=== PATIENT | female | born 1960 | race Hispanic/Latino ===

== ENCOUNTER → 2019-12-17 | Outpatient (CLI) | payer MEDICAID ==
[~2019-12-17] MED LIST: AMLO5TAB4 PO; ASCO100T12 PO; ASPI-1026 PO; ATOR40TA71 PO; CLOP75TA32 PO; INSU200I SQ; INSU300I SQ; LISI40TA4 PO; METF-446 PO; METO25TA6 PO; MV-M1TAB20 PO; PREG75CA75 PO; SENN-107 PO
== END | disposition home or self-care (01) ==
LOC: EDUNIT# 11-14 14:50 → SHCH 08:43
PROVIDERS: ATTEND Internal Medicine Cardiovascular Disease
DX: I87.2 Venous insufficiency (chronic) (peripheral) (principal)
CPT/HCPCS: 93970

== ENCOUNTER → 2020-04-30 | Outpatient (CLI) | payer MEDICAID | END | disposition home or self-care (01) | LOC: SHCH 15:15 | PROVIDERS: ATTEND Internal Medicine Cardiovascular Disease | DX: I25.5 Ischemic cardiomyopathy (principal) | CPT/HCPCS: 93306; 93356 ==

== ENCOUNTER → 2020-05-01 | Outpatient (CLI) | payer MEDICAID ==
[~2020-05-01] MED LIST changes: -AMLO5TAB4 PO; -ASCO100T12 PO; -ASPI-1026 PO; -ATOR40TA71 PO; -CLOP75TA32 PO; -INSU200I SQ; -INSU300I SQ; -LISI40TA4 PO; -METF-446 PO; -METO25TA6 PO; -MV-M1TAB20 PO; -PREG75CA75 PO; +REGADENOSON 0.4 MG/5 ML PF SYG IVP SCH; -SENN-107 PO
== END | disposition home or self-care (01) ==
LOC: SHCH 07:55
PROVIDERS: ATTEND Internal Medicine Cardiovascular Disease
DX: I21.4 Non-ST elevation (NSTEMI) myocardial infarction (principal)
CPT/HCPCS: 78452; 93017; 96374; A9500 ×2; J2785

== ENCOUNTER 2020-06-04 10:20 | Day surgery (SDC) | payer MEDICAID ==
[2020-06-01 10:55] VITALS: BP 134/70
[2020-06-01 12:47] LABS: BASOPHILS % (AUTO) 0.6 % (0.0-5.0); EOSINOPHILS % (AUTO) 2.1 % (0.0-8.0); HEMATOCRIT 35.8 % (36-48); LYMPHOCYTES % (AUTO) 28.4 % (21.0-51.0); MEAN CORPUSCULAR HEMOGLOBIN 24.1 pg (27.0-33.0); MEAN CORPUSCULAR HGB CONC 30.7 g/dL (32.0-36.0); MEAN CORPUSCULAR VOLUME 78.5 fL (79-99); MONOCYTES % (AUTO) 5.2 % (3.0-13.0); NEUTROPHILS % (AUTO) 63.3 % (40.0-77.0); PLATELET COUNT (AUTO) 408 K/uL (130-400); RED BLOOD CELL COUNT(AUTO) 4.56 MIL/uL (4.00-5.50); RED CELL DISTRIBUTION WIDTH 16.5 % (11.0-15.5); WHITE BLOOD COUNT (AUTO) 8.1 K/uL (4.8-10.8)
[2020-06-01 12:52] LABS: APPEARANCE,URINE CLOUDY (CLEAR); BILIRUBIN,URINE NEGATIVE (NEGATIVE); COLOR,URINE YELLOW (YELLOW); GLUCOSE, URINE (UA) NEGATIVE (NEGATIVE); KETONES,URINE NEGATIVE (NEGATIVE); LEUKOCYTE ESTERASE ,URINE LARGE (NEGATIVE); NITRATE,URINE NEGATIVE (NEGATIVE); OCCULT BLOOD,URINE TRACE-INTACT (NEGATIVE); PH,URINE 5.5 (5.0-8.0); PROTEIN,URINE NEGATIVE (NEGATIVE); UROBILINOGEN,URINE 0.2 mg/dL (0.2-1.0)
[2020-06-01 13:01] LABS: POTASSIUM 4.9 mmol/L (3.5-5.1)
[2020-06-01 13:11] LABS: BACTERIA,URINE Moderate /HPF (None Seen); RBC,URINE 0-1 /HPF (0-1); SQUAMOUS EPITHELIAL CELL,UR Few /HPF (0-2); WBC,URINE TNTC /HPF (0-1)
[2020-06-01 13:13] LABS: INR 0.99 (0.85-1.15); PARTIAL THROMBOPLASTIN TIME 26.1 SEC (26.3-35.5); PROTHROMBIN TIME 10.7 SEC (9.6-11.6)
--- NOTE | 2020-06-03 16:16 | NUR ---
LABS/XRAY ABNORMAL LABS, CHEST XRAY REPORTED TO [facility], FURTHER ORDERS GIVEN
[~2020-06-04] VITALS: Ht 154.9 cm; Wt 72.6 kg
[2020-06-04] VITALS (10 sets, daily range): BP systolic 115–144; BP diastolic 58–78
[~2020-06-04 10:20] MED LIST changes: +AMLO5TAB4 PO; +ASCO100T12 PO; +ASPI-1026 PO; +ATOR40TA71 PO; +CEFTRIAXONE SODIUM 1 GM IVP SCH; +CLOP75TA32 PO; +METF-446 PO; +MV-M1TAB20 PO; +PREG75CA75 PO; -REGADENOSON 0.4 MG/5 ML PF SYG IVP SCH; +SENN-107 PO
[2020-06-04] MEDS ORDERED: SULFAMETHOX-TMP DS 800/160 TAB PO SCH (11:04)
[2020-06-04] MEDS ORDERED: INSU300I SQ (12:05)
[2020-06-04] MEDS ORDERED: LISI40TA4 PO (12:05)
[2020-06-04] MEDS ORDERED: METO25TA6 PO (12:05)
[2020-06-04] MEDS ORDERED: INSU200I SQ (12:05)
[2020-06-04] MEDS ORDERED: SODIUM CHLORIDE 0.9% 1000ML 1,000 ML IV ONE (12:09)
[2020-06-04] MEDS ORDERED: NITROGLYCERIN 2 MG/VIAL VIAL IV ONE (14:41)
[2020-06-04] MEDS ORDERED: MIDAZOLAM HCL 1 MG/ML 2ML VIAL ONE (14:41)
[2020-06-04] MEDS ORDERED: IOHEXOL-350 50ML VIAL IV ONE (14:41)
[2020-06-04] MEDS ORDERED: BIVALIRUDIN 250 MG/VIAL IV ONE (14:41)
[2020-06-04] MEDS ORDERED: IOHEXOL 350 MG/ML 100ML INFUS..BTL IV ONE (14:41)
[2020-06-04] MEDS ORDERED: FENTANYL CITRATE PF 50 MCG/1 ML 2ML VIAL ONE (14:42)
[2020-06-04] MEDS ORDERED: LIDOCAINE HCL 2% 20ML ONE (14:42)
[2020-06-04] MEDS ORDERED: DEXTROSE 50%-WATER 50 ML DISP.SYRIN IV PRN (15:45)
[2020-06-04] MEDS ORDERED: SODIUM CHLORIDE 0.9% 1000ML 1,000 ML IV SCH (15:45)
[2020-06-04] MEDS ORDERED: NITROGLYCERIN 0.4 MG SL TAB SL PRN (15:45)
[2020-06-04] MEDS ORDERED: METOPROLOL TARTRATE 1 MG/ML 5ML VIAL IV PRN (15:45)
[2020-06-04] MEDS ORDERED: GLUCAGON 1MG KIT 1 MG ML IM PRN (15:45)
[2020-06-04] MEDS ORDERED: INSULIN HUMULIN R 100 UNIT/ML 3ML SQ SCH (16:30)
== END 2020-06-04 18:58 | disposition home or self-care (01) ==
LOC: DAH 10:20
PROVIDERS: ATTEND Internal Medicine Cardiovascular Disease
DX: I25.119 Atherosclerotic heart disease of native coronary artery with unspecified angina pectoris (principal); E78.5 Hyperlipidemia, unspecified; E11.51 Type 2 diabetes mellitus with diabetic peripheral angiopathy without gangrene; I87.2 Venous insufficiency (chronic) (peripheral); I21.4 Non-ST elevation (NSTEMI) myocardial infarction; I22.2 Subsequent non-ST elevation (NSTEMI) myocardial infarction; I11.0 Hypertensive heart disease with heart failure; I50.42 Chronic combined systolic (congestive) and diastolic (congestive) heart failure; I25.5 Ischemic cardiomyopathy; Z79.01 Long term (current) use of anticoagulants; Z79.82 Long term (current) use of aspirin; Z79.84 Long term (current) use of oral hypoglycemic drugs; Z79.899 Other long term (current) drug therapy
CPT/HCPCS: 36415; 71045; 80048; 81001; 82948 ×3; 85025; 85610; 85730; 87077; 87088; 87186; 93005; 93458; C1760; C1894 ×2; J1644; J2250; J3010; J3490 ×2; J7030; Q9965; Q9967 ×2; 99156; 99157; J0583

== ENCOUNTER → 2020-07-22 | Outpatient (CLI) | payer MEDICAID ==
[~2020-07-22] MED LIST changes: -CEFTRIAXONE SODIUM 1 GM IVP SCH; +INSU200I SQ; +INSU300I SQ; +LISI40TA4 PO; +METO25TA6 PO
== END | disposition home or self-care (01) ==
LOC: SHCH 15:02
PROVIDERS: ATTEND Internal Medicine Cardiovascular Disease
DX: I70.293 Other atherosclerosis of native arteries of extremities, bilateral legs (principal); I73.89 Other specified peripheral vascular diseases
CPT/HCPCS: 93925

== ENCOUNTER → 2021-03-29 | Outpatient (CLI) | payer MEDICAID ==
[~2021-03-29] MED LIST changes: -LISI40TA4 PO; +LISI40TA9 PO
== END | disposition home or self-care (01) ==
LOC: SHCH 10:36
PROVIDERS: ATTEND Internal Medicine Cardiovascular Disease
DX: I51.7 Cardiomegaly (principal); I25.5 Ischemic cardiomyopathy; E66.9 Obesity, unspecified; E78.5 Hyperlipidemia, unspecified; E11.9 Type 2 diabetes mellitus without complications; R55 Syncope and collapse
CPT/HCPCS: 93306; 93356

== ENCOUNTER → 2023-04-05 | Outpatient (CLI) | payer MEDICAID | END | disposition home or self-care (01) | LOC: SHCH 12:55 | PROVIDERS: ATTEND Internal Medicine Cardiovascular Disease | DX: I11.9 Hypertensive heart disease without heart failure (principal); I25.5 Ischemic cardiomyopathy; E11.9 Type 2 diabetes mellitus without complications; E78.5 Hyperlipidemia, unspecified | CPT/HCPCS: 93306 ==

== ENCOUNTER → 2024-02-20 | Outpatient (CLI) | payer MEDICAID ==
[~2024-02-20] MED LIST changes: -PREG75CA75 PO; +PREG75CA76 PO
== END | disposition home or self-care (01) ==
LOC: SHCH 12:40
PROVIDERS: ATTEND Internal Medicine Cardiovascular Disease
DX: I87.2 Venous insufficiency (chronic) (peripheral) (principal); I87.1 Compression of vein
CPT/HCPCS: 93970

== ENCOUNTER → 2024-04-19 | Outpatient (CLI) | payer MEDICAID | END | disposition home or self-care (01) | LOC: SHCH 11:45 | PROVIDERS: ATTEND Internal Medicine Cardiovascular Disease | DX: I65.21 Occlusion and stenosis of right carotid artery (principal) | CPT/HCPCS: 93880 ==